=== PATIENT | female | born 1965 | race Caucasian/White ===

== ENCOUNTER 2018-09-19 13:58 | Emergency (ER) | payer MEDICAID, OTHER ==
[~2018-09-19] VITALS: Wt 72.3 kg
[2018-09-19 14:09] VITALS: BP 164/83; PULSE 91; RESP 18
[2018-09-19] MEDS ORDERED: AZIT250T PO (16:18)
[2018-09-19] MEDS ORDERED: IBUP-1542 PO (16:18)
[2018-09-19] MEDS ORDERED: SULF15DR19 LEFT EYE (16:18)
--- NOTE | 2018-09-19 16:20 | ERD ---
ER Documentation Chief Complaint Chief Complaint L eye pain, fever, throat pains since Sun no relief w theraflu HPI 53-year-old female presents with 3-day history of pain in the left ear, sore throat some swelling left upper eyelid. She denies any visual changes. She may have had fevers at home but no fever triage. She has cough as well. She denies vomiting, abdominal pain, chest pain. ROS All systems reviewed and are negative except as per history of present illness. Medications Home Meds Active Scripts Sulfacetamide Sodium* (Bleph-10*) 10%-15 Ml Opht Drops, 1 DROP LEFT EYE QID for 7 Days, #1 EA Prov:SALMA TRISTAN MD 09/19/18 Ibuprofen* (Motrin*) 600 Mg Tab, 600 MG PO Q6, #20 TAB Prov:SALMA TRISTAN MD 09/19/18 Azithromycin* (Zithromax*) 250 Mg Tablet, 250 MG PO .ZPACK DIRECTED, #6 TAB TAKE 500 MG (2 TABS) THE FIRST DAY THEN 250 MG (1 TAB) DAYS 2-5 Prov:SALMA TRISTAN MD 09/19/18 FmHx Family History: No diabetes, No coronary disease, No other Physical Exam Vitals Vital Signs Date Temp Pulse Resp B/P (MAP) Pulse Ox O2 O2 Flow FiO2 Time Delivery Rate 09/19/18 99.9 91 18 164/83 99 14:09 (110) Physical Exam Const: No acute distress Head: Atraumatic Eyes: Normal Conjunctiva. Eyes Raquel and extraocular movements intact. Slight redness and swelling left upper eyelid without proptosis, abnormal abdomens, orbital swelling. ENT: Normal External Ears, Nose and Mouth. Left TM red and bulging. Neck: Full range of motion. No meningismus. Resp: Clear to auscultation bilaterally Cardio: Regular rate and rhythm, no murmurs Abd: Soft, non tender, non distended. Normal bowel sounds Skin: No petechiae or rashes Back: No midline or flank tenderness Ext: No cyanosis, or edema Neur: Awake and alert Psych: Normal Mood and Affect Procedures/MDM Patient presents with URI symptoms, signs of otitis media as well as a stye in her left upper eye. She has no complaints of visual changes and there is no abnormalities of the globe or no involvement of the globe. Is no evidence of airway obstruction, perforation, mastoiditis, additional complications. Will treat with Zithromax, ibuprofen, Bleph-10, instructions for warm compresses, primary care follow-up and return precautions. The patient was stable with no new complaints during the ER course. Clinically, there is no current evidence to suggest meningitis, sepsis, acute abdomen, pneumonia, stroke, acute coronary syndrome, pulmonary embolism, aortic dissection or any other emergent condition appearing to require further evaluation or hospitalization. Patient counseled regarding my diagnostic impression and care plan. Prior to discharge all questions answered. Pt agrees with treatment plan and understands strict return precautions. Pt is instructed to follow up with primary care provider within 24- 48 hours. Precautionary instructions provided including instructions to return to the ER if not improving or for any worsening or changing symptoms or concerns. Departure Diagnosis: Primary Impression: Stye Laterality: left Eyelid: upper Qualified Codes: H00.014 - Hordeolum externum left upper eyelid Additional Impression: Otitis media Otitis media type: suppurative Chronicity: acute Laterality: left Recurrence: not specified as recurrent Spontaneous tympanic membrane rupture: without spontaneous rupture Qualified Codes: H66.002 - Acute suppurative otitis media without spontaneous rupture of ear drum, left ear Condition: Stable Patient Instructions: Otitis Media, Abx Tx (Adult) Additional Instructions: Cheque otro vez con mandujano doctor primario en el proximo gonzalez or regresa para mas o nueva simptomas. SALMA TRISTAN MD Sep 19, 2018 16:20
== END 2018-09-19 16:41 | disposition home or self-care (01) ==
LOC: FTE 13:58
DX: H00.014 Hordeolum externum left upper eyelid (principal); H66.002 Acute suppurative otitis media without spontaneous rupture of ear drum, left ear
CPT/HCPCS: 99283